=== PATIENT | female | born 1945 | race Two or more races ===

== ENCOUNTER 2020-11-21 | Outpatient (CLI) | payer OTHER | END 2020-11-21 10:00 | disposition home or self-care (01) | LOC: PPH VACUNA | PROVIDERS: ATTEND Emergency Medicine Pediatric Emergency Medicine | DX: Z23 Encounter for immunization (principal) ==

== ENCOUNTER 2024-09-27 08:10 | Outpatient (CLI) | payer OTHER | END 2024-09-27 08:18 | disposition home or self-care (01) | LOC: TOM 08:10 | PROVIDERS: ATTEND Surgery | DX: K59.00 Constipation, unspecified (principal) ==